=== PATIENT | male | born 1955 | race Caucasian/White ===

== ENCOUNTER → 2022-10-25 08:48 | Outpatient (BNVA) | payer MEDICARE, MEDICAID, SELFPAY | PROVIDERS: PCP Internal Medicine; Visit Provider Surgery | DX: L72.0 Epidermal cyst (principal) | CPT/HCPCS: 99202 ==

== ENCOUNTER 2022-11-21 15:06 | Outpatient (REF) | payer MEDICARE, MEDICAID, SELFPAY | END 2022-11-21 15:07 | disposition home or self-care (01) | LOC: HO.LNP 15:06 | PROVIDERS: PCP Internal Medicine; Visit Provider Surgery | DX: L72.0 Epidermal cyst (principal) | CPT/HCPCS: 11402; 88304 ==

== ENCOUNTER → 2022-12-05 08:56 | Outpatient (BNVA) | payer MEDICARE, MEDICAID, SELFPAY | PROVIDERS: PCP Internal Medicine; Visit Provider Surgery ==

== ENCOUNTER 2023-06-21 08:24 | Outpatient (REF) | payer MEDICARE, MEDICAID, SELFPAY ==
[2023-06-21 12:00] LABS: Cholesterol 228 mg/dL (<200); HDL Cholesterol 63 mg/dL (>40); LDL Cholesterol Calculated 151 mg/dL (<100); Triglycerides 70 mg/dL (<150)
[2023-06-21 12:13] LABS: Alanine Aminotransferase 18 U/L (0-40); Albumin Level 4.1 g/dL (3.5-5.0); Alkaline Phosphatase 60 U/L (39-117); Anion Gap 10 (12-20); Aspartate Amino Transferase 18 U/L (5-37); Bilirubin Direct 0.2 mg/dL (0.0-0.5); Bilirubin Total 0.6 mg/dL (0.0-1.0); Blood Urea Nitrogen 14 mg/dL (9-16); Calcium 9.5 mg/dL (8.4-10.2); Carbon Dioxide 29 mmol/L (22-29); Chloride 106 mmol/L (96-108); Estimated Glomerular Filt Rate > 60; Glucose Random 100 mg/dL (60-115); Potassium 4.8 mmol/L (3.3-5.1); Sodium 140 mmol/L (135-145); Total Protein 7.7 g/dL (6.5-8.0)
[2023-06-21 12:16] LABS: Reflex LDLD? No
== END 2023-06-21 08:25 | disposition home or self-care (01) ==
LOC: HO.HHCL 08:24
PROVIDERS: Visit Provider Internal Medicine
DX: I10 Essential (primary) hypertension (principal); E78.2 Mixed hyperlipidemia
CPT/HCPCS: 36415; 80048; 80061; 80076

== ENCOUNTER 2024-07-10 08:56 | Outpatient (REF) | payer OTHER, SELFPAY ==
[2024-07-10 11:59] LABS: Prostate Specific Antigen Scr 2.59 ng/mL (<0.05-4.0)
[2024-07-10 12:03] LABS: Alanine Aminotransferase 21 U/L (0-40); Alkaline Phosphatase 68 U/L (39-117); Anion Gap 10 (12-20); Aspartate Amino Transferase 18 U/L (5-37); Bilirubin Direct 0.2 mg/dL (0.0-0.5); Bilirubin Total 0.5 mg/dL (0.0-1.0); Blood Urea Nitrogen 11 mg/dL (9-16); Calcium 9.2 mg/dL (8.4-10.2); Carbon Dioxide 28 mmol/L (22-29); Chloride 106 mmol/L (96-108); Cholesterol 237 mg/dL (<200); Estimated Glomerular Filt Rate > 60; Glucose Random 98 mg/dL (60-115); HDL Cholesterol 58 mg/dL (>40); LDL Cholesterol Calculated 165 mg/dL (<100); Potassium 4.2 mmol/L (3.3-5.1); Sodium 140 mmol/L (135-145); Total Protein 7.5 g/dL (6.5-8.0); Triglycerides 71 mg/dL (<150)
== END 2024-07-10 08:57 | disposition home or self-care (01) ==
LOC: HO.HHCL 08:56
PROVIDERS: Visit Provider Internal Medicine
DX: Z00.00 Encounter for general adult medical examination without abnormal findings (principal); Z12.5 Encounter for screening for malignant neoplasm of prostate; E78.2 Mixed hyperlipidemia; I10 Essential (primary) hypertension
CPT/HCPCS: 36415; 80048; 80061; 80076; 84153

== ENCOUNTER 2025-04-14 08:16 | Outpatient (REF) | payer OTHER, SELFPAY ==
--- OUTSIDE RECORDS SUMMARY | 2025-04-14 08:23 | XMS_ITS | Encounter Summary ---
Author Organization [employer] Address [address] [facility] 7t [place] [address] Care Team Providers Care Supervisor Counseling And Guidance Name Role Phone Óscar Cartagena MD Primary Care Provide r Reason for Visit * Reason Comments Med Refill Encounter Details Date Type Department Care Team (Late st Contact Info) Description 07/23/2023 Refill [facility] [address] [place], [place] [phone] Óscar Cartagena MD [address] [place], [place] [phone] Essential hypertension Social History Tobacco Use Types Packs/Day Years Used Date Smoking Tobacco: Never Smokeless Tobacco: Never Depression Answer Date Recorded Patient Health Questionnaire-9 Score 0 04/23/2023 Housing Stability Answer Date Recorded What is your housing situation today? I have housing today, but I am worried about losing housing in the future 07/22/[address] you li ve. Do you have problems with any of the following? None of the above 07/22/2023 Food Insecurity Answer Date Recorded Within the past 12 months, y ou worried that your food would run out before you got money to buy more: Never True 07/22/2023 Within the past 12 months,th e food you bought just didn't last and you didn't have enough money to get more: Never True Transportation Answer Date Recorded In the past 12 months, has l ack of transportation kept you from medical appts, meetings, work or from getting things needed for daily living? No 07/22/2023 Utilities Answer Date Recorded In the past 12 months, has t he electric, gas, oil or water [employer] threatened to shut off services in your home? No 07/22/2023 Depression Answer Date Recorded Patient Health Questionnaire-2 Score 0 04/23/2023 Sex and Gender Information Value Date Recorded Sex Assigned at Male 07/30/2022 10:18 AM EDT Legal Sex Male 10:18 AM EDT Gender Identity Male 07/30/2022 10:18 AM EDT Sexual Orientation Straight 07/30/2022 10 :18 AM EDT documented as of this encounter Plan of Treatment Upcoming Encounters Date Type Department Care Team (Late st Contact Info) Description 04/15/2025 9:15 AM EDT Office Visit [facility] [address] [place] [address] Óscar Cartagena MD [address] [place] [address] documented as of this encounter Visit Diagnoses Diagnosis Essential hypertension Unspecified essential hypertension documented in this encounter Additional Health Concerns Assessment Noted Time PHQ-9 Depression Total Score: 0 04/23/20 23 11:06 AM EDT documented as of this encounter Care Teams Supervisor Counseling And Guidance Relationship Specialty Start Date End Date Óscar Cartagena MD [address] [place] [address] PCP - General Internal Medicine 07/19/14 documented as of this encounter
[2025-04-14 12:05] LABS: Anion Gap 8 (12-20); Blood Urea Nitrogen 11 mg/dL (9-16); Calcium 9.5 mg/dL (8.4-10.2); Carbon Dioxide 29 mmol/L (22-29); Chloride 108 mmol/L (96-108); Cholesterol 200 mg/dL (<200); Estimated Glomerular Filt Rate > 60; HDL Cholesterol 53 mg/dL (>40); Potassium 4.3 mmol/L (3.3-5.1); Sodium 141 mmol/L (135-145); Triglycerides 84 mg/dL (<150)
[2025-04-14 12:12] LABS: ~HepC Num1 0.11 S/CO (0.00-0.79); ~Hepatitis C Antibody Nonreactive (Nonreactive)
== END 2025-04-14 08:17 | disposition home or self-care (01) ==
LOC: HO.HHCL 08:16
PROVIDERS: PCP Internal Medicine; Visit Provider Internal Medicine
DX: E78.2 Mixed hyperlipidemia (principal); I10 Essential (primary) hypertension
CPT/HCPCS: 36415; 80048; 80061; 86803

== ENCOUNTER 2025-07-14 11:14 | Outpatient (REF) | payer OTHER, SELFPAY ==
[2025-07-14 13:51] LABS: Anion Gap 11 (12-20); Blood Urea Nitrogen 16 mg/dL (9-16); Calcium 9.2 mg/dL (8.4-10.2); Carbon Dioxide 28 mmol/L (22-29); Chloride 108 mmol/L (96-108); Estimated Glomerular Filt Rate > 60; Potassium 4.1 mmol/L (3.3-5.1); Sodium 143 mmol/L (135-145)
--- OUTSIDE RECORDS SUMMARY | 2025-07-14 13:56 | XMS_ITS | Encounter Summary ---
Author Organization [employer] Address [address] [facility] [address] [place] [address] Care Team Providers Care Fork Operator Name Role Phone Óscar Cartagena MD Primary Care Provide r Reason for Visit * Reason Comments Med Refill Encounter Details Date Type Department Care Team (Late st Contact Info) Description 07/23/2023 Refill [facility] [address] [place], [place] [phone] Óscar Cartagena MD [address] [place], [place] [phone] Essential hypertension Social History Tobacco Use Types [...] t he electric, gas, oil or water [employer] threatened to shut off services in your [...] as of this encounter Plan of Treatment Not on file documented as of this encounter Visit Diagnoses Diagnosis Essential hypertension Unspecified essential hypertension documented in this encounter Additional Health Concerns Assessment Noted Time PHQ-9 Depression Total Score: 0 04/23/20 11:06 AM EDT documented as of this encounter Care Teams Fork Operator Relationship Specialty Start Date End Date Óscar Cartagena MD [address] [place] [address] PCP - General Internal Medicine 07/19/14 documented as of this encounter
--- OUTSIDE RECORDS SUMMARY | 2025-07-14 13:56 | XMS_ITS | Encounter Summary ---
Author Organization [employer] Address [address] [facility] [address] [place] [address] Care Team Providers Care Mastic Man Name Role Phone Óscar Cartagena MD Primary Care Provide r Encounter Details Date Type Department Care Team (Late st Contact Info) Description 09/14/2022 Orders Only [facility] [address] [place] [address] Rosangela Zacarias LPN Social History Tobacco Use Types Packs/Day Years Used Date Smoking Tobacco: Never Assessed Sex and Gender Information Value Date Recorded Sex Assigned at Male 07/30/2022 10:18 AM EDT Legal Sex Male 10:18 AM EDT Gender Identity Male 07/30/2022 10:18 AM EDT Sexual Orientation Straight 07/30/2022 10 :18 AM EDT documented as of this encounter Plan of Treatment Not on file documented as of this encounter Procedures Procedure Name Priority Date/Time Associated Diagnosis Comments GROSS AND MICROSCOPIC LEVEL 3 Routine 11/21/2022 3:30 PM EST documented in this encounter Results * Gross and Microscopic Level 3 (11/21/2022 3:30 PM EST) 11/21/2022 3:30 PM EST 11/22/2022 8:30 AM EST Narrative [facility] - 11/25/2022 9:12 AM EST ----- ------- Name: Nithin Giraldo Age/Sex: 67/M : 1955 [facility]#: [id number] Unit#: [id number] Attend Dr: Juan Pablo Palumbo MD Re11/21/22 Status: DEP REF Location: [facility] Disch: ----- ------- SPEC : [id number] RECD: 11/22/2230 STATUS: SHAYY CHRISTENSEN NUM: [id number] HEYDI: 11/21/22-15[address] [facility] [address]: Juan Pablo Palumbo MD ENTERED: 11/22/22-1024 SP TYPE: Surgical OTHR DR: Óscar Bonner MD ORDERED: Gross Micro L3 Diagnosis Skin, upper back, excision: Ruptured epidermal inclusion cyst. Clinical History Epidermal cyst upper back Microscopic Description Microscopic sections reviewed. Material Received Epidermal cyst upper back Gross Description Received in formalin labeled Epidermal cyst upper back is a 2.0 x 1.7 x 1.5 cm., firm and nodular portion of nevarez, white-yellow dermal and subcutaneous tissues with an attached 1.2 x 0.7 cm. ellipse of puckered and retracted nevarez skin with a central, 0.7 cm. in length, puckered and retracted linear crease. There is a palpable nodularity to the dermal and subcutaneous tissues. The margins are inked and the specimen is serially sectioned to reveal variegated, clefted and cystic, gritty and fibrotic, nevarez and nevarez-white dermal and subcutaneous tissues with an ill-defined, solid and cystic, nevarez-brown lesion, which focally contains nevarez-white keratotic material, which extends to the peripheral and deep margins and communicates with the skin surface, measuring 1.5 x 1.0 x 0.9 cm. The specimen is entirely submitted in cassettes A1 and A2, with cassette A2 containing the tip portions. CEDS Copies To: Óscar Bonner MD [address] [place] [address] Juan Pablo Palumbo MD [address] [facility] [place] [address] CONTINUED ON NEXT PAGE ----- ------- Name: Nithin Giraldo Age/Sex: 67/M : 1955 Unit#: [id number] Attend Dr: Juan Pablo Palumbo MD Re11/21/22 Status: DEP REF Location: [facility] Disch: ----- ------- SPEC : [id number] RECD: 11/22/22 STATUS: SHAYY CHRISTENSEN NUM: [id number] HEYDI: 11/21/22-15[address] [facility] [address]: Juan Pablo Plaumbo MD ENTERED: 11/22/22-1023 SP TYPE: Surgical OTHR DR: Óscar Bonner MD ORDERED: Annia Micro L3 ----- ------- Signed (signature on file) Miguelangel Arisa MD 11/25/22911 ----- ------- END OF REPORT [facility] External Provider LAB QUINN AYALA ORDERABLES Final Result [facility] [address] [place] [phone] documented in this encounter Visit Diagnoses Not on filedocumented in this encounter Care Teams Mastic Man Relationship Specialty Start Date End Date Óscar Cartagena MD [address] [place] [id number] PCP - General Internal Medicine 07/19/14 documented as of this encounter
--- OUTSIDE RECORDS SUMMARY | 2025-07-14 13:56 | XMS_ITS | Encounter Summary ---
Author Organization [employer] Address [address] [facility] [address] [place] [address] Care Team Providers Care Display Specialist Name Role Phone Óscar Cartagena MD Primary Care Provide r Encounter Details Date Type Department Care Team ([facility] st Contact Info) Description 12/12/2022 Orders Only [facility] [address] [place] [address] Rosangela Zacarias LPN Social History Tobacco Use [...] documented as of this encounter Visit Diagnoses Not on filedocumented in this encounter Care Teams Display Specialist Relationship Specialty Start Date End Date Óscar Cartagena MD [address] [place] [id number] PCP - General Internal Medicine 07/19/14 documented as of this encounter
--- OUTSIDE RECORDS SUMMARY | 2025-07-14 13:56 | XMS_ITS | Clinical Summary ---
Author Organization [employer] Address [address] [facility] [address] [place] [address] Care Team Providers Care Hospital Staff Pharmacist Name Role Phone Óscar Cartagena MD Primary Care Provide r Allergies No known active allergies Medications ketoconazole (NIZOral) 2 % shampooIndications :Seborrheic dermatitis of scalp Apply topically 2 (two) times a week. 120 mL 1 4 Active meloxicam (Mobic) 15 MG tabletIndications: Pain Take 1 tablet by mouth every day 90 tablet 5 Active cetirizine (ZyrTEC) 10 MG tabletIndications: Environmental and seasonal allergies 1 tablet by mouth daily as needed 90 tablet 5 Active amLODIPine (Norvasc) 2.5 MG tabletIndications: Essential hypertension Take 1 tablet (2.5 mg) by mouth in the morning. 90 tablet 1 5 Active rosuvastatin (Crestor) 20 MG tabletIndications: Hyperlipidemia, unspecified hyperlipidemia type Take 1 tablet (20 mg) by mouth Once per day. 90 tablet 1 5 Active Active Problems Problem Noted Date Diagnosed Date Overweight (BMI 25.0-29.9) 12/15/2024 Assessment & Plan (12/15/2024 8:49 AM EDT): Patient has been counseled and educated about diet and exercise. Personal goal of weight loss discussed Seborrheic dermatitis of scalp 08/11/2024 Assessment & Plan (07/06/2025 10:17 AM EDT): Rx Nizoral shampoo previously Derm referral was placed last visit, he wants to come see Dr. Lerma Assessment & Plan (12/15/2024 8:48 AM EDT): Rx Nizoral shampoo last visit Derm referral was placed last visit Assessment & Plan (08/11/2024 11:28 AM EST): Symptomatology suggestive of this Plan: Nizoral shampoo Derm referral [facility] health care 04/23/2023 Assessment & Plan (07/06/2025 10:11 AM EDT): PSA: 07/10/2024 Normal, will repeat Colonoscopy: January 01 [address] Salmeron Assessment & Plan (08/11/2024 10:25 AM EST): PSA: 07/10/2024 Normal Colonoscopy: January 01 [address] Salmeron Assessment & Plan (04/09/2024 12:50 PM EDT): PSA: ordered Colonoscopy: January 01 [address] Salmeron Assessment & Plan (04/23/2023 11:11 AM EDT): Colonoscopy: January 01 [address] Salmeron Mixed hyperlipidemia 01/14/2013 Assessment & Plan (04/15/2025 9:35 AM EDT): Patient with elevated lipids. Most recent lipid profile from: Lab Results Component Value Date TRIG 84 04/14/2025 TRIG 71 07/10/2024 CHOL 200 (H) 04/14/2025 CHOL 237 (H) 07/10/2024 LDLCHOLCAL 131 (H) 04/14/2025 LDLCHOLCAL 165 (H) 07/10/2024 HDL 53 04/14/2025 HDL 58 07/10/2024 He is supposed to be on a regimen of: Crestor 20 mg po qhs Of note pt has numerous side effects from use of other statins such as Simvastatin, Pravastatin and Atorvastatin ( tachycardia) reason why he is now on Crestor Pt continues to admit he does not take the medication every day. Plan: Discussed the need to be compliant with medication. Patient has been advised to try to adhere to a low cholesterol diet, counseled and educated about diet and exercise. Assessment & Plan (12/15/2024 8:48 AM EDT): Patient with elevated lipids. Most recent lipid profile from: Lab Results Component Value Date TRIG 71 07/10/2024 TRIG 70 06/21/2023 CHOL 237 (H) 07/10/2024 CHOL 228 (H) 06/21/2023 LDLCHOLCAL 165 (H) 07/10/2024 LDLCHOLCAL 151 (H) 06/21/2023 HDL 58 07/10/2024 HDL 63 06/21/2023 He is supposed to be on a regimen of: Crestor 40mg po qhs Of note pt has numerous side effects from use of other statins such as Simvastatin, Pravastatin and Atorvastatin ( tachycardia) reason why he is now on Crestor Pt admits he does not take the medication every day. Plan: Discussed the need to be compliant with medication. Repeat Lipid profile prior to next vist Patient has been advised to try to adhere to a low cholesterol diet, counseled and educated about diet and exercise. Assessment & Plan (08/11/2024 11:31 AM EST): Patient with elevated lipids. Most recent lipid profile from: Lab Results Component Value Date TRIG 71 07/10/2024 TRIG 70 06/21/2023 CHOL 237 (H) 07/10/2024 CHOL 228 (H) 06/21/2023 LDLCHOLCAL 165 (H) 07/10/2024 LDLCHOLCAL 151 (H) 06/21/2023 HDL 58 07/10/2024 HDL 63 06/21/2023 He is supposed to be on a regimen of: Crestor 40mg po qhs Of note pt has numerous side effects from use of other statins such as Simvastatin, Pravastatin and Atorvastatin ( tachycardia) reason why he is now on Crestor Pt admits he does not take the medication every day. Plan: Discussed the need to be compliant with medication Patient has been advised to try to adhere to a low cholesterol diet, counseled and educated about diet and exercise. Assessment & Plan (04/09/2024 12:49 PM EDT): Patient with elevated lipids. Most recent lipid profile from: 06/21/2023 Component Ref Range & Units 3 mo ago 2 yr ago 3 yr ago Triglycerides <150 mg/dL 70 90 66 Comment: Desirable Triglyceride: less than 150 mg/dLBorderline High Triglyceride 150-199 mg/dLHigh Triglyceride: 200-499 mg/dLVery High Triglyceride: greater than or equal to 5OO mg/dL Cholesterol <200 mg/dL 228 High Comment: Desirable Cholesterol: less than 200 mg/dLBorderline High Cholesterol: 200-239 mg/dLHigh Cholesterol: greater than 239 mg/dL LDL Cholesterol Calculated <100 mg/dL 151 High Comment: Desirable LDL: less than 100 mg/dLNear Optimal/Above Optimal LDL: 110- 129 mg/dLBorderline High LDL: 130-159 mg/dLHigh LDL: 160-189 mg/dLVery High LDL: greater than or equal to 190 mg/dL HDL Cholesterol >40 mg/dL 63 51 R 51 R He is on a regimen of: Crestor 40mg po qhs Of note pt has numerous side effects from use of other statins such as Simvastatin, Pravastatin and Atorvastatin ( tachycardia) reason why he is now on Crestor Plan: Repeat Lipid profile Patient has been advised to try to adhere to a low cholesterol diet, counseled and educated about diet and exercise. Assessment & Plan (09/26/2023 11:43 AM EST): Patient with elevated lipids. Most recent lipid profile from: 06/21/2023 Component Ref Range & Units 3 mo ago 2 yr ago 3 yr ago Triglycerides <150 mg/dL 70 90 66 Comment: Desirable Triglyceride: less than 150 mg/dLBorderline High Triglyceride 150-199 mg/dLHigh Triglyceride: 200-499 mg/dLVery High Triglyceride: greater than or equal to 5OO mg/dL Cholesterol <200 mg/dL 228 High Comment: Desirable Cholesterol: less than 200 mg/dLBorderline High Cholesterol: 200-239 mg/dLHigh Cholesterol: greater than 239 mg/dL LDL Cholesterol Calculated <100 mg/dL 151 High Comment: Desirable LDL: less than 100 mg/dLNear Optimal/Above Optimal LDL: 110-129 mg/dLBorderline High LDL: 130-159 mg/dLHigh LDL: 160-189 mg/dLVery High LDL: greater than or equal to 190 mg/dL HDL Cholesterol >40 mg/dL 63 51 R 51 R He is supposed to be on a regimen of: Crestor 20mg po qhs, he admits he does not take it every day Of note pt has numerous side effects from use of other statins such as Simvastatin, Pravastatin and Atorvastatin ( tachycardia) reason why he is now on Crestor Plan: Increase Crestor to 40 mg po qhs Patient has been advised to try to adhere to a low cholesterol diet, counseled and educated about diet and exercise. Assessment & Plan (04/23/2023 11:17 AM EDT): Patient with elevated lipids. Most recent lipid profile from: 10/14/2020 shows a total Cholesterol of: 292 Triglycerides of: 90 HDL of: 51 and LDL of: 220 He is supposed to be on a regimen of: Crestor 20mg po qhs, he admits he does not take it every day Of note pt has numerous side effects from use of other statins such as Simvastatin, Pravastatin and Atorvastatin ( tachycardia) reason why he is now on Crestor Plan: repeat Lipid profile Patient has been advised to try to adhere to a low cholesterol diet, counseled and educated about diet and exercise. Hypertension 01/14/2013 Assessment & Plan (07/06/2025 10:18 AM EDT): Patient here for a follow up BP today controlled He is on Norvasc 2.5 mg po daily Pt's most recent electrolytes, Bun and Creatinine done on: Lab Results Component Value Date NA 141 04/14/2025 NA 140 07/10/2024 K 4.3 04/14/2025 K 4.2 07/10/2024 CL 108 04/14/2025 CL 106 07/10/2024 BUN 11 04/14/2025 BUN 11 07/10/2024 CREATININE 0.99 04/14/2025 CREATININE 0.91 07/10/2024 were wnl. Today he brought his BP monitor , I reveiewed 10 readings 7 out of 10 where within normal ranges between 120-130s systolics Plan: Continue current regimen. patient has advised to adhere to a low sodium diet, encouraged about medication compliance, counseled about weight loss. f/u with me in 4 months Assessment & Plan (04/15/2025 9:34 AM EDT): Patient here for a follow up BP controlled He is on Norvasc 2.5 mg po daily Pt's most recent electrolytes, Bun and Creatinine done on: Lab Results Component Value Date NA 141 04/14/2025 NA 140 07/10/2024 K 4.3 04/14/2025 K 4.2 07/10/2024 CL 108 04/14/2025 CL 106 07/10/2024 BUN 11 04/14/2025 BUN 11 07/10/2024 CREATININE 0.99 04/14/2025 CREATININE 0.91 07/10/2024 were wnl. Patient brought his BP monitor , I reveiewed 13 reading 11 out of 13 where within normal ranges between 120-130s systolics Plan: Continue current regimen. patient has advised to adhere to a low sodium diet, encouraged about medication compliance, counseled about weight loss. f/u with me in 4 months Assessment & Plan (12/15/2024 9:17 AM EDT): Patient here for a follow up BP mildly elevated. Pt states he just took his medication 30 minutes ago He is on Norvasc 2.5 mg po daily Pt's most recent electrolytes, Bun and Creatinine done on: Lab Results Component Value Date NA 140 07/10/2024 NA 140 06/21/2023 K 4.2 07/10/2024 K 4.8 06/21/2023 CL 106 07/10/2024 CL 106 06/21/2023 BUN 11 07/10/2024 BUN 14 06/21/2023 CREATININE 0.91 07/10/2024 CREATININE 0.94 06/21/2023 were wnl. patient has advised to adhere to a low sodium diet, encouraged about medication compliance, counseled about weight loss. f/u with me in 4 months Assessment & Plan (08/11/2024 10:23 AM EST): Patient here for a follow up He is on Norvasc 2.5 mg po daily Pt's most recent electrolytes, Bun and Creatinine done on: Lab Results Component Value Date NA 140 07/10/2024 NA 140 06/21/2023 K 4.2 07/10/2024 K 4.8 06/21/2023 CL 106 07/10/2024 CL 106 06/21/2023 BUN 11 07/10/2024 BUN 14 06/21/2023 CREATININE 0.91 07/10/2024 CREATININE 0.94 06/21/2023 were wnl. patient has advised to adhere to a low sodium diet, encouraged about medication compliance, counseled about weight loss. f/u with me in 4 months Assessment & Plan (04/09/2024 12:48 PM EDT): Patient here for a follow up He is on Norvasc 2.5 mg po daily Pt's most recent electrolytes, Bun and Creatinine done on: 06/21/2023 were wnl. Repeat BMP patient has advised to adhere to a low sodium diet, encouraged about medication compliance, counseled about weight loss. f/u with me in 4 months Assessment & Plan (09/26/2023 11:54 AM EST): Patient here for a follow up He is supposed to be on Norvasc 2.5 mg po daily he tells me he did not take it yesterday or today So no changes today Pt's most recent electrolytes, Bun and Creatinine done on: 06/21/2023 were wnl. patient has advised to adhere to a low sodium diet, encouraged about medication compliance, counseled about weight loss. f/u with me in 4 months Assessment & Plan (04/23/2023 11:17 AM EDT): Patient here for a follow up after a long hiatus He is supposed to be on Norvasc 2.5 mg po daily he tells me he did not take it today Pt's most recent electrolytes, Bun and Creatinine done on: 07/15/2021 were wnl. Today will repeat patient has advised to adhere to a low sodium diet, encouraged about medication compliance, counseled about weight loss. f/u with me in 4 months Chronic low back pain 01/14/2013 Assessment & Plan (04/15/2025 9:25 AM EDT): Patient here for a follow up He has Chronic low back pain,reports good and bad days Pt gives no Hx of: injury Pt has been previously treated with: PT at: [facility] , Pt has never had Epidural steroid injections prior surgical intervention: NO Currently on: Acetaminophen, Meloxicam I have recommended: Rest and pain medications in the past. Pt declines other interventions. declines pain management evaluation Previous work up included an MRI of his LS spine done on 12/02/2007 showed: mild degenerative disc disease along L4-L5 and L5-S1 levels. No disc herniation or stenosis. Assessment & Plan (04/23/2023 11:10 AM EDT): Chronic low back pain, here for a f/u Pt has a Hx. of Chronic low back pain Pt gives no Hx of: injury Pt has been previously treated with: PT at: [facility] , Pt has never had Epidural steroid injections prior surgical intervention: NO Currently on: Acetaminophen I have recommended: Rest and pain medications in the past. Pt declines other interventions. declines pain management evaluation MRI of his LS spine done on 12/02/2007 showed: mild degenerative disc disease along L4-L5 and L5-S1 levels. No disc herniation or stenosis. Allergic rhinitis 06/26/2012 Assessment & Plan (04/15/2025 9:23 AM EDT): On Zyrtec Resolved Problems Problem Noted Date Diagnosed Date Resolved Date Mild major depression, single episode 07/22/2018 04/09/2024 Encounters Date Type Department Care Team Description 07/06/2025 10:15 AM EDT Office Visit [facility] MED[facility] [address] [place] [phone] Óscar Cartagena MD Primary hypertension (Primary Dx); Encounter for immunization; Preventative health care; Seborrheic dermatitis of scalp 07/06/2025 Travel 07/05/2025 Telephone [facility] [address] [place] [phone] Óscar Cartagena MD chart prep 04/15/2025 9:15 AM EDT Office Visit [facility] [address] [place] [address] Óscar Cartagena MD Primary hypertension (Primary Dx); Essential hypertension; Mixed hyperlipidemia; Pain; Environmental and seasonal allergies; Seasonal allergic rhinitis, unspecified trigger; Chronic midline low back pain without sciatica; Hyperlipidemia, unspecified hyperlipidemia type 04/15/2025 Travel 04/14/2025 Telephone [facility] [address] [place] [address] [phone] Óscar Cartagena MD Chart Prep from Last 3 Months Immunizations Immunization Administration Dates Next Due Hep B, adult 03/26/2008,10/03/2007,09/01/2007 Influenza High-dose Quadriva lent Preservative Free 06/08/2022 Influenza Injectable Quadriv alant Preservative Free IIV4 MDCK 07/12/2020 Influenza injectable quadriv alent IIV4 with preservative 07/22/2018,06/26/2016 Influenza injectable quadriv alent preservative free 10/15/2023,10/18/2021,07/30/2019,2016,10/31/2015 Influenza, High Dose Seasona l, Preservative Free 07/06/2025,08/11/2024 Influenza, IIV3, injectable 08/17/2014, 1 Influenza, Split (incl. debora fied surface antigen) 06/23/2013,06/26/2012 Moderna Covid-19 Vaccine 12+ 10/04/2021,03/02/20 21,02/01/2021 Pfizer Covid-19 Vaccine 12+ 10/15/2023 Pfizer Covid-19 Vaccine 12+ Bivalent 07/24/2022 Pneumococcal Conjugate PCV 20 12/15/2024 TD (adult), 2 Lf tetanus tox oid, preservative free, adsorbed 05/07/2007 Tdap 11/14/2017 Zoster, Recombinant 07/12/2020 Zoster, live 03/18/2018 Social History Tobacco Use Types Packs/Day Years Used Date Smoking Tobacco: Former Cigarettes Q uit: 04/15/2007 Passive Smoke Exposure: Past Smokeless Tobacco: Never Tobacco Cessation:Counseling Given: Not Answered Alcohol Use Standard Drinks/Week Comments Not Currently 0 (1 standard drink = 0.6 oz pur e alcohol) Alcohol Answer Date Recorded How often do you have a drink containing alcohol ? 1 07/06/2025 How many drinks containing a lcohol do you have on a typical day when you are drinking? 1 07/06/2025 How often do you have six or more drinks on one occasion? 1 07/06/2025 Depression Answer Date Recorded Patient Health Questionnaire-9 Score 0 04/15/2025 Patient Health Questionnaire-9 Score 0 04/15/2025 Last PHQ-9: Questionnaire Data Not on file 0 04/15/2025 Housing Stability Answer Date Recorded What is your housing situation today? I have blanca zelaya 12/26/[address] you li ve. Do you have problems with any of the following? None of the above 12/26/2023 Food Insecurity Answer Date Recorded Within the past 12 months, y ou worried that your food would run out before you got money to buy more: Sometimes True 2024 Within the past 12 months,th e food you bought just didn't last and you didn't have enough money to get more: Sometimes True 12/08/2024 Transportation Answer Date Recorded In the past 12 months, has l ack of transportation kept you from medical appts, meetings, work or from getting things needed for daily living? No 07/22/2023 Utilities Answer Date Recorded In the past 12 months, has t he electric, gas, oil or water company threatened to shut off services in your home? No 07/22/2023 Depression Answer Date Recorded Patient Health Questionnaire-2 Score 0 04/15/2025 Internet Access Answer Date Recorded Internet Access Q1 No 12/08/2024 Internet Access Q2 I do not want or need it 11/28 Sex and Gender Information Value Date Recorded Sex Assigned at Male 07/30/2022 10:18 AM EDT Legal Sex Male 10:18 AM EDT Gender Identity Male 07/30/2022 10:18 AM EDT Sexual Orientation Straight 07/30/2022 10 :18 AM EDT Last Filed Vital Signs Vital Sign Reading Time Taken Comments Blood Pressure 138/82 07/06/2025 10:16 AM EDT Pulse 81 07/06/2025 10:01 AM EDT Temperature 36 C (96.8 F) 07/06/2025 10:01 AM EDT Respiratory Rate 16 07/06/2025 10:01 AM EDT Oxygen Saturation 99% 07/06/2025 10:01 AM EDT Inhaled Oxygen Concentration - - Weight 82.6 kg (182 lb) 07/06/2025 10:01 AM EDT Height 175.3 cm (5' 9 ) 07/06/2025 10:01 AM EDT Body Mass Index 26.88 07/06/2025 10:01 AM EDT Plan of Treatment Health Maintenance Due Date Last Done Comments CT Colonography 1956 FIT DNA/Cologuard 1956 FIT 1956 FOBT 1955 Sigmoidoscopy 1955 Zoster Vaccines (3 of 3) 09/06/2020 07/12/2020, 02/28 COVID-19 Vaccine ( season) 2025 10/15/2023, 07/24/2022, 10/04/2021, Additional history exists SDOH Screening 12/08/2025 12/08/2024 Depression Screening 04/15/2026 04/15/2025, 04/15/20 Alcohol/Substance Use Screening 07/06/2026 07/06/2025 Tobacco Screening 07/06/2026 07/06/2025 Colonoscopy 01/01/2027 01/01/2017 Colorectal Cancer Screening 01/01/2027 DTaP/Tdap/Td Vaccines (2 - Td or Tdap) 11/14/2027 11/14/2017, 05/07/2007 Lipid Panel 04/14/2030 04/14/2025, 06/30, 06/21/2023, Additional history exists RSV Patients and Patients Aged 60 years or older (1 - 1-dose 75+ series) 2031 Hepatitis B Vaccines Completed 03/26/2008, 10/03/2007, 09/01/2007 Pneumococcal Vaccine: 50+ Years Completed 12/15/2024 Hepatitis C Screening Completed 04/14/2025 Influenza Vaccine Completed 07/06/2025, , 10/15/2023, Additional history exists HIB Vaccines Aged Out No longer eligi ble based on patient's age to complete this topic HPV Vaccines Aged Out No longer eligi ble based on patient's age to complete this topic Hepatitis A Vaccines Aged Out No long er eligible based on patient's age to complete this topic IPV Vaccines Aged Out No longer eligi ble based on patient's age to complete this topic Meningococcal B Vaccine Aged Out No l onger eligible based on patient's age to complete this topic Meningococcal Vaccine Aged Out No surekha jhony eligible based on patient's age to complete this topic RSV under 20 months Aged Out No longe r eligible based on patient's age to complete this topic Rotavirus Vaccines Aged Out No longer eligible based on patient's age to complete this topic Procedures Procedure Name Priority Date/Time Associated Diagnosis Comments BASIC METABOLIC PANEL Routine 07/14/2025 11:18 AM EDT Primary hypertension Essential hypertension Mixed hyperlipidemia Seasonal allergic rhinitis, unspecified trigger Chronic midline low back pain without sciatica HEPATITIS C AB W/REFL TO HCV RNA, QN, PCR Routine 04/14/2025 8:26 AM EDT Primary hypertension LIPID PANEL, STANDARD Routine 04/14/2025 8:26 AM EDT Mixed hyperlipidemia BASIC METABOLIC PANEL Routine 04/14/2025 8:26 AM EDT Primary hypertension HM COLONOSCOPY Routine 01/01/2017 from Last 3 Months or Most Recently Relevant to Health Maintenance Results * (ABNORMAL) Basic metabolic panel (07/14/2025 11:18 AM EDT) Only the most recent of2 resultswithin the time period is included. Sodium 143 135 - 145 mmol/L [facility] Potassium 4.1 3.3 - 5.1 mmol/L [facility] Chloride 108 96 - 108 mmol/L [facility] Carbon Dioxide 28 22 - 29 mmol/L [facility] Anion Gap 11(L) 12 - 20 [facility] Urea Nitrogen (BUN) 16 9 - 16 mg/dL [facility] Creatinine, Serum 1.11 0.5 - 1.4 mg/dL [facility] Estimated Glomerular Filt Rate >60 [facility] Comment:Chronic Kidney Disea se: Estimated GFR < 60 mL/min/[id number] Kidney Disease: Estimated GFR < 15 mL/min/1.73m2 Glucose 84 60 - 115 mg/dL [facility] Calcium 9.2 8.4 - 10.2 mg/dL [facility] Blood Venous blood specimen / Unknown 07/14/2025 11:18 AM EDT 07/14/2025 1:11 PM EDT Óscar Hernandez MD LAB BLOOD ORDERABLES Final Result Performing Organization Address City/[facility]/ZIP Co de Phone Number [facility] [address] [place] [phone] * Hepatitis C Antibody with Reflex to HCV, RNA, Quantitative, Real-Time PCR (04/14/2025 8:26 AM EDT) Hepatitis C Antibody Nonreactive Nonreactive [facility] Comment:Antibodies to HCV no t detected; does not exclude early acuteHCV infection. Blood Venous blood specimen / Unknown 04/14/2025 8:26 AM EDT 04/14/2025 11:09 AM EDT Óscar Hernandez MD LAB BLOOD ORDERABLES Final Result Performing Organization Address City/[facility]/ZIP Co de Phone Number [facility] [address] [place] [phone] * (ABNORMAL) Lipid Panel, Standard (04/14/2025 8:26 AM EDT) Triglycerides 84 <150 mg/dL [facility] Comment:Desirable Triglyceri de: less than 150 mg/dLBorderline High Triglyceride 150-199 mg/dLHigh Triglyceride: 200-499 mg/dLVery High Triglyceride: greater than or equal to 5OO mg/dL Cholesterol 200(H) <200 mg/dL [facility] Comment:Desirable Cholestero l: less than 200 mg/dLBorderline High Cholesterol: 200-239 mg/dLHigh Cholesterol: greater than 239 mg/dL LDL Cholesterol Calculated 131(H) <100 mg/dL [facility] Comment:Desirable LDL: less than 100 mg/dLNear Optimal/Above Optimal LDL: 110- 129 mg/dLBorderline High LDL: 130-159 mg/dLHigh LDL: 160-189 mg/dLVery High LDL: greater than or equal to 190 mg/dL HDL Cholesterol 53 >40 mg/dL [facility] Comment:Desirable HDL: great er than 40 mg/dL Note: This HDL assay may give artificially low results in patients with liver disease. Blood Venous blood specimen / Unknown 04/14/2025 8:26 AM EDT 04/14/2025 11:14 AM EDT Óscar Hernandez MD LAB BLOOD ORDERABLES Final Result [facility] [address] [place] [phone] * Colonoscopy (01/01/2017) Colonoscopy Normal Normal Comment:Dr. Salmeron Hyperpla stic polyp Historical Provider HEALTH MAINTENANCE Final Result from Last 3 Months or Most Recently Relevant to Health Maintenance Insurance [facility] STANDARD [facility] [employer] Care Teams Hospital Staff Pharmacist Relationship Specialty Start Date End Date Óscar Cartagena MD [address] [place] [phone] PCP - General Internal Medicine 07/19/14
== END 2025-07-14 11:15 | disposition home or self-care (01) ==
LOC: HO.HHCL 11:14
PROVIDERS: PCP Internal Medicine; Visit Provider Internal Medicine
DX: Z00.00 Encounter for general adult medical examination without abnormal findings (principal); I10 Essential (primary) hypertension; E78.2 Mixed hyperlipidemia; J30.2 Other seasonal allergic rhinitis; M54.50 Low back pain, unspecified; G89.29 Other chronic pain; Z12.5 Encounter for screening for malignant neoplasm of prostate
CPT/HCPCS: 36415; 80048; 84153